=== PATIENT | male | born 1935 | race Caucasian/White ===

== ENCOUNTER → 2016-12-26 | Outpatient (CLI) | payer MEDICARE, BC ==
[~2016-12-26] MED LIST: NO HOME MEDICATIONS; PREDNISONE20 MG PO
== END ==
LOC: COL.RAD 13:19
DX: N28.1 Cyst of kidney, acquired (principal); I70.0 Atherosclerosis of aorta; I70.209 Unspecified atherosclerosis of native arteries of extremities, unspecified extremity; R91.1 Solitary pulmonary nodule; K44.9 Diaphragmatic hernia without obstruction or gangrene

== ENCOUNTER → 2017-10-12 | Outpatient (CLI) | payer MEDICARE, BC | LOC: COL.PUL 10:54 | DX: R06.00 Dyspnea, unspecified (principal); R05 Cough; Z72.0 Tobacco use ==

== ENCOUNTER 2017-11-20 08:55 | Day surgery (SDC) | payer MEDICARE, BC ==
[2017-11-20] VITALS (15 sets, daily range): BP systolic 122–166; BP diastolic 64–83; PULSE 48–83; TEMP 99.2
[~2017-11-20] VITALS: Ht 188 cm; Wt 73.9 kg
[2017-11-20 09:26] LABS: MEAN CELL VOLUME 94 fl (80.0-100.0); MEAN CORPUSCULAR HGB CONC 33 g/dl (33.0-37.0); MEAN PLATELET VOLUME 10.7 fl (7.4-10.4); PLATELET COUNT 172 K/mm3 (130-400); RED BLOOD COUNT 3.68 M/mm3 (4.20-5.60); REDCELL DISTRIBUTION WIDTH-CV 20.1 % (11.5-14.5)
[2017-11-20 09:28] LABS: HEMATOCRIT 34.4 % (42.0-52.0); HEMOGLOBIN 11.3 g/dl (13.5-18.0); MEAN CORPUSCULAR HEMOGLOBIN 31 pg (27.0-31.0)
[2017-11-20] MEDS ORDERED: PROAIR HFA0.09 MG/AC IH (09:30)
[2017-11-20] MEDS ORDERED: ASPIRIN 81M81 MG/TA2 PO (09:31)
[2017-11-20] MEDS ORDERED: 00186-0372-20 IH (09:31)
[2017-11-20] MEDS ORDERED: DESYREL DIVIDO150 M1 PO (09:32)
[2017-11-20 09:33] LABS: INR 1.2 (0.8-3.0); PROTHROMBIN TIME 14.4 SECONDS (9.7-12.8)
[2017-11-20] MEDS ORDERED: NITROSTAT0.4 MG/TAB SL ×2 (09:33→13:20)
[2017-11-20 09:35] LABS: CALCIUM 9.1 mg/dL (8.4-10.2); CREATININE, serum 1.75 mg/dL (0.66-1.25); POTASSIUM 4.5 mmol/L (3.4-5.0)
[2017-11-20] MEDS ORDERED: PLAVIX 75MG TAB75 MG PO (13:14)
[2017-11-20] MEDS ORDERED: LIPITOR 40MG TA40 MG PO (13:14)
[2017-11-20] MEDS ORDERED: IMDUR 30MG30 MG/TAB PO (13:15)
[2017-11-20] MEDS ORDERED: ASPIRIN E.C. 8181 MG PO (13:16)
[2017-11-20] MEDS ORDERED: NORVASC 5MG5 MG/TAB PO (13:20)
== END 2017-11-20 19:35 | disposition home or self-care (01) ==
LOC: COL.CAR 08:55
PROVIDERS: Internal Medicine Cardiovascular Disease
DX: I25.10 Atherosclerotic heart disease of native coronary artery without angina pectoris (principal); J44.9 Chronic obstructive pulmonary disease, unspecified; F32.9 Major depressive disorder, single episode, unspecified; F17.210 Nicotine dependence, cigarettes, uncomplicated; Z85.54 Personal history of malignant neoplasm of ureter; Z90.5 Acquired absence of kidney; Z88.0 Allergy status to penicillin; Z91.041 Radiographic dye allergy status
CPT/HCPCS: J2250; J3010; Q9967

== ENCOUNTER 2017-12-26 14:44 | Inpatient (IN) | payer MEDICARE, BC ==
[2017-12-26] VITALS (414 sets, daily range): BP systolic 93–117; BP diastolic 49–76; PULSE 85–97; TEMP 97.9–98.3; O2SAT 78–100
[~2017-12-26] VITALS: Ht 182.9 cm; Wt 90.4 kg
[~2017-12-26 14:44] MED LIST changes: +00186-0372-20 IH; +ASPIRIN 81M81 MG/TA2 PO; +ASPIRIN E.C. 8181 MG PO; +DESYREL DIVIDO150 M1 PO; +IMDUR 30MG30 MG/TAB PO; +LIPITOR 40MG TA40 MG PO; +NITROSTAT0.4 MG/TAB SL; +NORVASC 5MG5 MG/TAB PO; +PLAVIX 75MG TAB75 MG PO; +PROAIR HFA0.09 MG/AC IH
[2017-12-26 15:16] LABS: MEAN CELL VOLUME 92 fl (80.0-100.0); MEAN CORPUSCULAR HGB CONC 35 g/dl (33.0-37.0); RED BLOOD COUNT 2.47 M/mm3 (4.20-5.60); REDCELL DISTRIBUTION WIDTH-CV 22.6 % (11.5-14.5)
[2017-12-26 15:32] LABS: HEMATOCRIT 22.6 % (42.0-52.0); MEAN CORPUSCULAR HEMOGLOBIN 32 pg (27.0-31.0)
[2017-12-26 15:33] LABS: PLATELET COUNT 20 K/mm3 (130-400)
[2017-12-26 15:34] LABS: ALBUMIN 2.5 gm/dL (3.5-5.0); CALCIUM 7.9 mg/dL (8.4-10.2); POTASSIUM 4.8 mmol/L (3.4-5.0); TOTAL PROTEIN 6.2 gm/dL (6.4-8.2)
[2017-12-26 15:34] LABS: ARTERIAL BLD GAS O2 SATURATION 85.2 % (92-100); ARTERIAL BLD GAS TCO2 CT 15.8; ARTERIAL BLOOD GAS BASE EXCESS -7.8 (-2-2); ARTERIAL BLOOD GAS HCO3 15.1 meq/L (22-26); ARTERIAL BLOOD GAS PO2 51.6 mmHg (80-100); ARTERIAL BLOOD GAS pH 7.43 (7.35-7.45)
[2017-12-26 15:35] LABS: ARTERIAL BLOOD GAS PCO2 23.2 mmHg (35-45)
[2017-12-26 15:38] LABS: CREATININE, serum 4.11 mg/dL (0.66-1.25)
[2017-12-26 16:01] LABS: LYMPHOCYTE 6 % (20.0-51.0); NEUTROPHILS 1 % (42.0-75.2); NUCLEATED RED BLOOD CELL 2 (0-6)
[2017-12-26 16:04] LABS: ANISOCYTOSIS 2+; OVALOCYTES 1+; PLATELET ESTIMATE DECREASED (NORMAL); POIKILOCYTOSIS 1+; TEAR DROP CELLS 1+
[2017-12-26 16:47] LABS: INR 1.7 (0.8-3.0); PROTHROMBIN TIME 19.8 SECONDS (9.7-12.8)
[2017-12-26 17:31] LABS: COLLECTION METHOD CLEAN CATCH
[2017-12-26] MEDS ORDERED: DESYREL 100MG100 MG PO (17:35)
[2017-12-26] MEDS ORDERED: PROAIR HFA0.09 MG/AC IH (17:37)
[2017-12-26 18:02] LABS: MUCOUS Present /lpf; PH 5 (5-8); SQUAMOUS EPITHELIAL 0-2 /hpf; URINE APPEARANCE Cloudy; URINE BACTERIA None Seen /hpf; URINE BILIRUBIN Negative (NEGATIVE); URINE BLOOD 1+ (NEGATIVE); URINE COLOR Amber; URINE GLUCOSE Negative (NEGATIVE); URINE KETONE Negative (NEGATIVE); URINE LEUKOCYTE ESTERASE Negative (NEGATIVE); URINE NITRATE Negative (NEGATIVE); URINE PROTEIN(semi-quant) 2+ (NEGATIVE); URINE RBC None Seen /hpf; URINE UROBILINOGEN >=4.0 mg/dL (NEGATIVE)
[2017-12-26 23:07] LABS: CREATININE, serum 3.55 mg/dL (0.66-1.25); PHOSPHOROUS 2.8 mg/dL (2.5-4.5); POTASSIUM 4.5 mmol/L (3.4-5.0)
[2017-12-27] VITALS (1370 sets, daily range): BP systolic 85–130; BP diastolic 43–963; PULSE 67–83; TEMP 97–98.1; O2SAT 85–100
[2017-12-27 00:49] LABS: CREATININE, serum 3.55 mg/dL (0.66-1.25); SODIUM 127 mmol/L (137-145)
[2017-12-27 04:26] LABS: MEAN CELL VOLUME 91 fl (80.0-100.0); MEAN CORPUSCULAR HGB CONC 35 g/dl (33.0-37.0); MEAN PLATELET VOLUME 10.8 fl (7.4-10.4); RED BLOOD COUNT 2.09 M/mm3 (4.20-5.60); REDCELL DISTRIBUTION WIDTH-CV 22.2 % (11.5-14.5)
[2017-12-27 04:30] LABS: HEMOGLOBIN 6.6 g/dl (13.5-18.0); INR 1.9 (0.8-3.0); MEAN CORPUSCULAR HEMOGLOBIN 32 pg (27.0-31.0); PLATELET COUNT 47 K/mm3 (130-400); PROTHROMBIN TIME 21.9 SECONDS (9.7-12.8)
[2017-12-27 04:33] LABS: ALBUMIN 2.2 gm/dL (3.5-5.0); BILIRUBIN,TOTAL 0.9 mg/dL (0.0-1.0); CALCIUM 7.2 mg/dL (8.4-10.2); CREATININE, serum 3.29 mg/dL (0.66-1.25); POTASSIUM 4.5 mmol/L (3.4-5.0); TOTAL PROTEIN 5.5 gm/dL (6.4-8.2)
[2017-12-27 04:45] LABS: NUCLEATED RED BLOOD CELL 2 (0-6)
[2017-12-27 04:46] LABS: BURR CELLS 2+; ROULEAUX 2+
[2017-12-27 04:47] LABS: ANISOCYTOSIS 1+; HELMET CELLS 1+; HYPOCHROMIA 1+; MICROCYTOSIS 1+; POIKILOCYTOSIS 2+; POLYCHROMASIA 1+; TARGET CELLS 1+; TEAR DROP CELLS 1+
[2017-12-27 04:49] LABS: LYMPHOCYTE 20 % (20.0-51.0)
[2017-12-27 05:37] LABS: ARTERIAL BLD GAS O2 SATURATION 93.7 % (92-100); ARTERIAL BLD GAS TCO2 CT 20.6; ARTERIAL BLOOD GAS BASE EXCESS -4.4 (-2-2); ARTERIAL BLOOD GAS HCO3 19.6 meq/L (22-26); ARTERIAL BLOOD GAS PCO2 31.2 mmHg (35-45); ARTERIAL BLOOD GAS PO2 69.8 mmHg (80-100); ARTERIAL BLOOD GAS pH 7.42 (7.35-7.45)
[2017-12-27 07:50] LABS: HEMATOCRIT 21.1 % (42.0-52.0); HEMOGLOBIN 7.7 g/dl (13.5-18.0)
[2017-12-27 08:11] LABS: PATHOLOGY DIFF REVIEW OK +
[2017-12-28] VITALS (1440 sets, daily range): BP systolic 111–132; BP diastolic 54–73; PULSE 56–79; TEMP 96.3–98.2; O2SAT 90–100
[2017-12-28 05:26] LABS: ARTERIAL BLD GAS O2 SATURATION 94.2 % (92-100); ARTERIAL BLD GAS TCO2 CT 21.6; ARTERIAL BLOOD GAS BASE EXCESS -3.5 (-2-2); ARTERIAL BLOOD GAS HCO3 20.6 meq/L (22-26); ARTERIAL BLOOD GAS PCO2 32.7 mmHg (35-45); ARTERIAL BLOOD GAS PO2 73.8 mmHg (80-100); ARTERIAL BLOOD GAS pH 7.42 (7.35-7.45)
[2017-12-28 06:00] LABS: MEAN CELL VOLUME 90 fl (80.0-100.0); MEAN CORPUSCULAR HGB CONC 34 g/dl (33.0-37.0); RED BLOOD COUNT 2.37 M/mm3 (4.20-5.60); REDCELL DISTRIBUTION WIDTH-CV 21.1 % (11.5-14.5)
[2017-12-28 06:03] LABS: INR 1.6 (0.8-3.0); PROTHROMBIN TIME 18.5 SECONDS (9.7-12.8)
[2017-12-28 06:09] LABS: ALBUMIN 2.1 gm/dL (3.5-5.0); BILIRUBIN,TOTAL 0.8 mg/dL (0.0-1.0); CALCIUM 6.8 mg/dL (8.4-10.2); CREATININE, serum 2.75 mg/dL (0.66-1.25); TOTAL PROTEIN 5.3 gm/dL (6.4-8.2)
[2017-12-28 06:10] LABS: HEMATOCRIT 21.3 % (42.0-52.0); HEMOGLOBIN 7.3 g/dl (13.5-18.0); MEAN CORPUSCULAR HEMOGLOBIN 31 pg (27.0-31.0); PLATELET COUNT 14 K/mm3 (130-400)
[2017-12-28 07:56] LABS: BAND 1 % (0-10); LYMPHOCYTE 6 % (20.0-51.0); PLATELET ESTIMATE DECREASED (NORMAL)
[2017-12-28 07:57] LABS: ANISOCYTOSIS 1+
[2017-12-28 08:02] LABS: MICROCYTOSIS 1+
[2017-12-28 08:03] LABS: BURR CELLS 1+; TARGET CELLS 1+
[2017-12-29] VITALS (1440 sets, daily range): BP systolic 126–148; BP diastolic 65–83; PULSE 61–78; TEMP 97–98.5; O2SAT 86–100
[2017-12-29 06:01] LABS: ALBUMIN 2.2 gm/dL (3.5-5.0); BILIRUBIN,TOTAL 0.9 mg/dL (0.0-1.0); CALCIUM 6.9 mg/dL (8.4-10.2); CREATININE, serum 2.62 mg/dL (0.66-1.25); POTASSIUM 4.9 mmol/L (3.4-5.0); TOTAL PROTEIN 5.6 gm/dL (6.4-8.2)
[2017-12-29 06:04] LABS: MEAN CELL VOLUME 89 fl (80.0-100.0); MEAN CORPUSCULAR HGB CONC 35 g/dl (33.0-37.0); RED BLOOD COUNT 2.26 M/mm3 (4.20-5.60)
[2017-12-29 06:10] LABS: HEMATOCRIT 20.2 % (42.0-52.0); HEMOGLOBIN 7.1 g/dl (13.5-18.0); MEAN CORPUSCULAR HEMOGLOBIN 31 pg (27.0-31.0)
[2017-12-29 06:11] LABS: PLATELET COUNT 19 K/mm3 (130-400)
[2017-12-29 06:19] LABS: PROTHROMBIN TIME 17.3 SECONDS (9.7-12.8)
[2017-12-29 06:20] LABS: INR 1.5 (0.8-3.0)
[2017-12-29 06:22] LABS: LYMPHOCYTE 37 % (20.0-51.0); NUCLEATED RED BLOOD CELL 3 (0-6)
[2017-12-29 06:23] LABS: PLATELET ESTIMATE DECREASED (NORMAL)
[2017-12-30] VITALS (517 sets, daily range): BP systolic 117–146; BP diastolic 58–92; PULSE 59–84; TEMP 96.7–97.8; O2SAT 89–100
[2017-12-30 05:37] LABS: MEAN CELL VOLUME 89 fl (80.0-100.0); MEAN CORPUSCULAR HGB CONC 35 g/dl (33.0-37.0); MEAN PLATELET VOLUME 9.9 fl (7.4-10.4); RED BLOOD COUNT 2.58 M/mm3 (4.20-5.60); REDCELL DISTRIBUTION WIDTH-CV 19.6 % (11.5-14.5)
[2017-12-30 05:48] LABS: ALBUMIN 2.3 gm/dL (3.5-5.0); BILIRUBIN,TOTAL 1.1 mg/dL (0.0-1.0); CALCIUM 6.5 mg/dL (8.4-10.2); CREATININE, serum 2.82 mg/dL (0.66-1.25); MAGNESIUM 2.3 mg/dL (1.6-2.3); POTASSIUM 4.8 mmol/L (3.4-5.0); TOTAL PROTEIN 5.9 gm/dL (6.4-8.2)
[2017-12-30 05:50] LABS: INR 1.4 (0.8-3.0); PROTHROMBIN TIME 16.7 SECONDS (9.7-12.8)
[2017-12-30 05:55] LABS: HEMOGLOBIN 8.1 g/dl (13.5-18.0); MEAN CORPUSCULAR HEMOGLOBIN 31 pg (27.0-31.0)
[2017-12-30 05:56] LABS: PLATELET COUNT 17 K/mm3 (130-400)
[2017-12-30 05:58] LABS: URIC ACID 23.1 mg/dL (3.5-8.5)
[2017-12-30 06:08] LABS: LYMPHOCYTE 27 % (20.0-51.0); NEUTROPHILS 1 % (42.0-75.2); PLATELET ESTIMATE DECREASED (NORMAL)
[2017-12-30 06:09] LABS: ANISOCYTOSIS 3+
[2017-12-30 06:22] LABS: URINE PROTEIN:CREAT RATIO 1.91 (0.00-0.14)
[2017-12-31 04:25] VITALS: BP 146/63; PULSE 76; TEMP 98.3
[2017-12-31 06:05] LABS: INR 1.4 (0.8-3.0); PROTHROMBIN TIME 16.7 SECONDS (9.7-12.8)
[2017-12-31 06:16] LABS: MEAN CELL VOLUME 88 fl (80.0-100.0); MEAN CORPUSCULAR HGB CONC 35 g/dl (33.0-37.0); MEAN PLATELET VOLUME 9.7 fl (7.4-10.4); REDCELL DISTRIBUTION WIDTH-CV 19.7 % (11.5-14.5)
[2017-12-31 06:17] LABS: CALCIUM 6.9 mg/dL (8.4-10.2); CREATININE, serum 2.9 mg/dL (0.66-1.25); MAGNESIUM 2.2 mg/dL (1.6-2.3); POTASSIUM 4.2 mmol/L (3.4-5.0)
[2017-12-31 06:27] LABS: HEMATOCRIT 23.7 % (42.0-52.0); HEMOGLOBIN 8.4 g/dl (13.5-18.0); MEAN CORPUSCULAR HEMOGLOBIN 31 pg (27.0-31.0)
[2017-12-31 06:28] LABS: PLATELET COUNT 20 K/mm3 (130-400)
[2017-12-31 08:00] VITALS: BP 123/69; PULSE 75; TEMP 97.5
[2017-12-31 08:00] LABS: ANISOCYTOSIS 2+; HYPOCHROMIA 1+; NEUTROPHILS 1 % (42.0-75.2); PLATELET ESTIMATE DECREASED (NORMAL)
[2017-12-31 08:18] LABS: PATHOLOGY DIFF REVIEW OK +
[2017-12-31] MEDS ORDERED: LEVAQUIN 5500 MG/TA1 OD (13:00)
[2017-12-31] MEDS ORDERED: FLAGYL500 MG PO (13:01)
[2017-12-31] MEDS ORDERED: FENTANYL 12MCG TD (13:18)
[2017-12-31] MEDS ORDERED: ROXANOL 20MG20 MG/ML SL (13:18)
[2017-12-31] MEDS ORDERED: ATIVAN 1MG T1 MG/TAB PO (13:19)
[2017-12-31] MEDS ORDERED: SENOKOT S 50 MG1 TAB PO (13:20)
[2017-12-31] MEDS ORDERED: LEADER CLEARLAX 510 PO (13:20)
[2017-12-31] MEDS ORDERED: TRANSDERM-0.5 MG/21 TD (13:21)
[2017-12-31] MEDS ORDERED: ZOFRAN ODT4 MG PO (13:22)
== END 2017-12-31 15:25 | disposition hospice, home (50) | DRG 871 ==
LOC: COL.ER 14:44 → ICU 16:15 → SURG 12-30 16:16
PROVIDERS: Family Medicine; Internal Medicine; Internal Medicine Pulmonary Disease; Pathology Anatomic Pathology & Clinical Pathology
PROC: 07DR3ZX Extraction of Iliac Bone Marrow, Percutaneous Approach, Diagnostic (ICD-10-PCS; principal; 2017-12-27 11:00)
DX: A41.9 Sepsis, unspecified organism (principal); R65.21 Severe sepsis with septic shock; N17.0 Acute kidney failure with tubular necrosis; E43 Unspecified severe protein-calorie malnutrition; Z51.5 Encounter for palliative care; Z66 Do not resuscitate; C92.50 Acute myelomonocytic leukemia, not having achieved remission; E87.1 Hypo-osmolality and hyponatremia; K81.0 Acute cholecystitis; I25.10 Atherosclerotic heart disease of native coronary artery without angina pectoris; Z85.54 Personal history of malignant neoplasm of ureter; I12.9 Hypertensive chronic kidney disease with stage 1 through stage 4 chronic kidney disease, or unspecified chronic kidney disease; N18.3 Chronic kidney disease, stage 3 (moderate); F17.210 Nicotine dependence, cigarettes, uncomplicated; J44.9 Chronic obstructive pulmonary disease, unspecified; E86.0 Dehydration
CPT/HCPCS: 99233-AI; 99239; C9113; J0610; J1450; J1720; J1940; J1956; J2185; J2270; J2704; J3370; J7030; J7040; J7050; J7060; J7120; P9016; P9035; P9037; P9040